=== PATIENT | female | born 1945 | race Hispanic/Latino ===

== ENCOUNTER 2020-04-28 21:23 | Observation (INO) | payer MEDICARE ==
[~2020-04-28 21:23] MED LIST: ACET1TAB25 PO; ASPI-1005 PO; CLOP75TA32 PO; DILT60TA3 PO; Isosorbide Mono 30MG Tab Sr PO; METO50TA9 PO; NITR0.4T50 SL; RANO500T2 PO; ROSU10TA28 PO
[2020-04-28 21:55] LABS: BASOPHILS % (AUTO) 0.5 % (0.0-5.0); EOSINOPHILS % (AUTO) 1.9 % (0.0-8.0); HEMATOCRIT 39.5 % (36-48); LYMPHOCYTES % (AUTO) 15.7 % (21.0-51.0); MEAN CORPUSCULAR HEMOGLOBIN 28.7 pg (27.0-33.0); MEAN CORPUSCULAR HGB CONC 32.7 g/dL (32.0-36.0); MONOCYTES % (AUTO) 9.6 % (3.0-13.0); NEUTROPHILS % (AUTO) 71.9 % (40.0-77.0); PLATELET COUNT (AUTO) 234 K/uL (130-400); RED BLOOD CELL COUNT(AUTO) 4.49 MIL/uL (4.00-5.50); RED CELL DISTRIBUTION WIDTH 14.3 % (11.0-15.5); WHITE BLOOD COUNT (AUTO) 8.4 K/uL (4.8-10.8)
[2020-04-28 22:07] LABS: POTASSIUM 4.1 mmol/L (3.5-5.1)
[2020-04-28 22:10] LABS: APPEARANCE,URINE Clear (CLEAR); BILIRUBIN,URINE Negative (NEGATIVE); COLOR,URINE Yellow (YELLOW); GLUCOSE, URINE (UA) Negative (NEGATIVE); KETONES,URINE Negative (NEGATIVE); LEUKOCYTE ESTERASE ,URINE Trace (NEGATIVE); NITRATE,URINE Negative (NEGATIVE); OCCULT BLOOD,URINE Negative (NEGATIVE); PH,URINE 6.5 (5.0-8.0); PROTEIN,URINE Negative (NEGATIVE)
[2020-04-28 22:18] LABS: ALBUMIN 4.2 g/dL (3.5-5.0); BILIRUBIN,TOTAL 0.4 mg/dL (0.2-1.0); TOTAL PROTEIN, SERUM 7.5 g/dL (6.0-8.3)
[2020-04-28 22:26] LABS: BACTERIA,URINE Few /HPF (None Seen); RBC,URINE 0-1 /HPF (0-1); SQUAMOUS EPITHELIAL CELL,UR Moderate /HPF (0-2); WBC,URINE 0-1 /HPF (0-1)
[2020-04-29] MEDS ORDERED: ASPIRIN 325 MG TABLET ONE (01:32)
[2020-04-29] MEDS ORDERED: SODIUM CHLORIDE 0.9% 1000ML 1,000 ML IV SCH (01:58)
[2020-04-29] MEDS ORDERED: ACETAMINOPHEN 325 MG TAB PO PRN ×2 (02:00)
[2020-04-29] MEDS ORDERED: ZOLPIDEM TARTRATE 5 MG TAB PO PRN (02:00)
[2020-04-29] MEDS ORDERED: ONDANSETRON HCL 4 MG/2 ML VIAL IV PRN (02:00)
[2020-04-29] MEDS ORDERED: DiphenhydrAMINE HCL 50 MG/ML VIAL IV PRN (02:00)
[2020-04-29] MEDS ORDERED: DIPHENHYDRAMINE HCL 25 MG CAPSULE PO PRN (02:00)
[2020-04-29] MEDS ORDERED: MAG HYDROX/AL HYDROX/SIMETH ES 30 ML SUSP UDCUP PO PRN (02:00)
[2020-04-29] MEDS ORDERED: NITROGLYCERIN 0.4 MG SL TAB SL PRN (02:00)
[2020-04-29] MEDS ORDERED: LACTULOSE 20 GM/30 ML UDCUP PO PRN (02:00)
[2020-04-29] MEDS ORDERED: GUAIFENESIN-DM 200/20 MG 10 ML PO PRN (02:00)
[2020-04-29] MEDS ORDERED: LIDOCAINE HCL 2% VISCOUS 30 ML, MAG HYDROX/AL HYDROX/SIMETH 30 ML, BELLADONNA-PHENOBARB... PO PRN ×3 (02:00)
[2020-04-29] MEDS ORDERED: HYDRALAZINE HCL 20 MG/ML VIAL IV PRN (02:30)
[2020-04-29 03:03] LABS: CREATINE KINASE, TOTAL 58 U/L (21-232); MYOGLOBIN 19 ng/mL (10-92); TROPONIN I < 0.04 ng/mL (0.00-0.06)
[2020-04-29 04:04] LABS: BASOPHILS % (AUTO) 0.7 % (0.0-5.0); LYMPHOCYTES % (AUTO) 16.6 % (21.0-51.0); MEAN CORPUSCULAR HEMOGLOBIN 29.6 pg (27.0-33.0); MEAN CORPUSCULAR HGB CONC 33.2 g/dL (32.0-36.0); MEAN CORPUSCULAR VOLUME 88.9 fL (79-99); MONOCYTES % (AUTO) 10.5 % (3.0-13.0); NEUTROPHILS % (AUTO) 69.9 % (40.0-77.0); PLATELET COUNT (AUTO) 205 K/uL (130-400); RED BLOOD CELL COUNT(AUTO) 4.16 MIL/uL (4.00-5.50); RED CELL DISTRIBUTION WIDTH 14.3 % (11.0-15.5); WHITE BLOOD COUNT (AUTO) 6.9 K/uL (4.8-10.8)
[2020-04-29 04:21] LABS: ALBUMIN 3.6 g/dL (3.5-5.0); BILIRUBIN,TOTAL 0.3 mg/dL (0.2-1.0); CREATININE 0.9 mg/dL (0.5-1.5); MAGNESIUM 1.8 mg/dL (1.80-2.40); PHOSPHORUS 3.8 mg/dL (2.5-4.9); POTASSIUM 3.9 mmol/L (3.5-5.1); TOTAL PROTEIN, SERUM 6.7 g/dL (6.0-8.3)
[2020-04-29] MEDS ORDERED: ACETAMINOPHEN-CODEINE 300/30MG TAB PO PRN (05:00)
[2020-04-29 08:39] LABS: CREATINE KINASE, TOTAL 57 U/L (21-232); MYOGLOBIN 22 ng/mL (10-92); TROPONIN I < 0.04 ng/mL (0.00-0.06)
[2020-04-29] MEDS ORDERED: METOPROLOL SUCCINATE 50 MG TAB.SR.24H PO SCH (09:00)
[2020-04-29] MEDS: RANOLAZINE 500 MG TAB.SR.12H PO SCH ×2 (09:00→12:07)
[2020-04-29] MEDS ORDERED: ENOXAPARIN SODIUM 40 MG/0.4 ML SYRINGE SQ SCH (09:00)
[2020-04-29] MEDS ORDERED: CLOPIDOGREL BISULFATE 75 MG TAB PO SCH (09:00)
[2020-04-29] MEDS ORDERED: ATORVASTATIN CALCIUM 20 MG TABLET PO SCH (09:00)
[2020-04-29] MEDS ORDERED: ISOSORBIDE MONO 30MG TAB SR PO SCH (09:00)
[2020-04-29] MEDS ORDERED: FAMOTIDINE/PF 20 MG/2 ML VIAL IV SCH (09:00)
[2020-04-29] MEDS ORDERED: ASPIRIN 325 MG TABLET PO SCH (09:00)
--- NOTE | 2020-04-29 09:15 | NUR ---
DYSPHAGIA EVAL COMPLETED -S/S OF ASPIRATION AT THIS TIME. RECOMMEND REGULAR SOLIDS, THIN LIQUIDS, AND PILLS WHOLE WITH LIQUIDS TOLERATED. 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 PATIENT VOICED UNDERSTANDING OF RISKS AND CONSEQUENCES OF ASPIRATION. Addendum: 04/29/[address] [facility] GOMEZ Amended: Links added.
[2020-04-29 09:21] LABS: CHOLESTEROL 107 mg/dL (<200); HDL CHOLESTEROL 80 mg/dL (35-85); LDL DIRECT 56 mg/dL (0-99); TRIGLYCERIDES 79 mg/dL (30-200)
[2020-04-29 12:00] VITALS: BP 129/59
[2020-04-29] MEDS: DILTIAZEM HCL 60 MG TABLET PO SCH ×2 (12:06→15:22)
--- NOTE | 2020-04-29 14:00 | NUR ---
RD NOTIFICATION - NUTRITION EDUCATION Pt admitted with Chest Pain. Hx CAD, Angina, HTN, HLD. Tolerating Clear Liquid diet order with no report of GI distress. LBM 04/28/20. RN-assisted Nutrition education. Education material faxed to [phone]), RN notified. Recommend advance diet as tolerated to Heart Healthy. Please notify RD as additional nutrition concerns arise. Thank you.
--- NOTE | 2020-04-29 15:13 | NUR ---
[id number] patient signed CASEY Letter, I faxed CASEY Letter to [phone] and placed in chart under consent tab.
--- NOTE | 2020-04-29 17:00 | NUR ---
PER MD ORDERS DC'D PT HOME. PIV AND TELE REMOVED, TIP INTACT. DISCHARGE INSTRUCTIONS GIVEN TO FOLLOW UP WITH PAINT PREPPER IN [place] SCHEDULED AND TO CONTINUE TAKING HOME MEDS PRESCRIBED BY MD. PT STATES UNDERSTANDING. PT STATED NO OTHER QUESTIONS. EDUCATION ON FALL PREVENTION, CHEST PAIN, AND HAND WASHING WAS PROVIDED. INSTRUCTED PT TO RETURN TO ER OR CALL 911 IF CHEST PAIN OCCURS AGAIN DIRECTED BY MD. STATED UNDERSTANDING.
== END 2020-04-29 17:24 | disposition home or self-care (01) ==
LOC: EDH 21:23 → INTOOBSV 04-29 01:58 → EDHIP 04-29 01:58 → 3CH 04-29 04:54
PROVIDERS: ADMIT Internal Medicine; ATTEND Internal Medicine
DX: R07.89 Other chest pain (principal); I10 Essential (primary) hypertension; I25.10 Atherosclerotic heart disease of native coronary artery without angina pectoris; I45.10 Unspecified right bundle-branch block; M81.0 Age-related osteoporosis without current pathological fracture; E78.5 Hyperlipidemia, unspecified; Z86.73 Personal history of transient ischemic attack (TIA), and cerebral infarction without residual deficits; Z95.5 Presence of coronary angioplasty implant and graft; Z95.3 Presence of xenogenic heart valve; Z95.1 Presence of aortocoronary bypass graft
CPT/HCPCS: 36415 ×2; 71045; 80053 ×2; 80061; 81001; 82550 ×3; 83735; 83874 ×2; 83880; 84100; 84484 ×4; 85025 ×2; 92610; 93005 ×4; 96372; 96374; 99285; G0378 ×15; J1650; J3490

== ENCOUNTER → 2023-02-04 | Outpatient (CLI) | payer MEDICARE ==
[~2023-02-04] MED LIST changes: +ACET-2079 PO; -ACET1TAB25 PO; -ASPI-1005 PO
== END | disposition home or self-care (01) ==
LOC: RAH 13:06
PROVIDERS: ATTEND Physician Assistant
DX: S09.90XA Unspecified injury of head, initial encounter (principal); X58.XXXA Exposure to other specified factors, initial encounter; Y93.89 Activity, other specified; Y92.89 Other specified places as the place of occurrence of the external cause; Y99.8 Other external cause status
CPT/HCPCS: 70450

== ENCOUNTER → 2024-05-03 | Outpatient (CLI) | payer MEDICARE ==
[~2024-05-03] MED LIST changes: -ROSU10TA28 PO; +ROSU10TA72 PO
== END | disposition home or self-care (01) ==
LOC: RAH 09:33
PROVIDERS: ATTEND Internal Medicine Gastroenterology
DX: K21.9 Gastro-esophageal reflux disease without esophagitis (principal); K31.89 Other diseases of stomach and duodenum; K92.1 Melena; R10.12 Left upper quadrant pain
CPT/HCPCS: 74240